=== PATIENT | male | born 1955 | race Caucasian/White ===

== ENCOUNTER 2017-05-19 16:51 | Outpatient (CLI) | payer OTHER ==
[~2017-05-19 16:51] MED LIST: HYDR20TA3 PO; LEVO150T8 PO; SIMV40TA4 PO; TEST75GE5 TOP
[2017-05-19 17:38] LABS: BASOPHILS % (AUTO) 0.9 % (0-1); EOSINOPHILS # (AUTO) 0.2 X10'3 (0-0.9); EOSINOPHILS % (AUTO) 4.8 % (0-6); HEMATOCRIT 39.1 % (42.0-52.0); HEMOGLOBIN 13.2 g/dl (14.0-17.9); LYMPHOCYTES # (AUTO) 2.2 X10'3 (1.1-4.8); LYMPHOCYTES % (AUTO) 43.5 % (21-51); MEAN CORPUSCULAR HEMOGLOBIN 31.7 PG (27.0-31.0); MEAN CORPUSCULAR HGB CONC 33.7 % (33.0-36.5); MONOCYTES # (AUTO) 0.4 X10'3 (0-0.9); MONOCYTES % (AUTO) 7.9 % (2-12); NEUTROPHILS # (AUTO) 2.1 X10'3 (1.8-7.7); NEUTROPHILS % (AUTO) 42.9 % (42-75); PLATELET COUNT 208 X10'3 (140-440); RED BLOOD COUNT 4.16 X10'6 (4.70-6.10); RED CELL DISTRIBUTION WIDTH 13.2 % (11.5-14.5); WHITE BLOOD COUNT 4.9 X10'3 (4.5-11.0)
[2017-05-19 17:40] LABS: ALANINE AMINOTRANSFERASE 55 U/L (12-78); ALBUMIN 4.1 G/DL (3.4-5.0); ALBUMIN/GLOBULIN RATIO 1.2 (1.1-1.5); ALKALINE PHOSPHATASE 64 IU/L (46-116); ANION GAP 8 (8-16); ASPARTATE AMINO TRANSFERASE 38 U/L (10-37); BILIRUBIN,TOTAL 0.7 MG/DL (0.1-1.0); BLOOD UREA NITROGEN 20 MG/DL (7-18); BUN/CREATININE RATIO 18.9 (5.4-32.0); CALCIUM 8.8 MG/DL (8.5-10.1); CHLORIDE 104 MMOL/L (99-107); CHOL/HDL RATIO 2.1 (0.00-4.99); CHOLESTEROL 181 MG/DL (0-200); CREATININE 1.06 MG/DL (0.60-1.10); GLUCOSE 105 MG/DL (70-104); HDL CHOLESTEROL 86 MG/DL (35-60); LDL CHOLESTEROL 80 MG/DL (50-100); POTASSIUM 3.8 MMOL/L (3.5-5.1); SODIUM 139 MMOL/L (135-145); TOTAL CARBON DIOXIDE 27.4 MMOL/L (24-32); TOTAL PROTEIN 7.4 G/DL (6.4-8.2); TRIGLYCERIDES 45 MG/DL (20-135); eGFR 71 ML/MIN
[2017-05-20 04:18] LABS: CLARITY,URINE CLEAR (Clear); COLOR,URINE YELLOW (Yellow); GLUCOSE, URINE NEGATIVE (Neg); KETONES,URINE NEGATIVE (Neg); LEUKOCYTE ESTERASE ,URINE NEGATIVE (Neg); NITRITES, URINE NEGATIVE (Neg); OCCULT BLOOD,URINE NEGATIVE (Neg); PROTEIN,URINE NEGATIVE (Neg); UROBILINOGEN,URINE 0.2 E.U/dL (0.2-1.0)
[2017-05-20 04:20] LABS: UA COLLECTION TYPE CLN CATCH MIDSTREAM
== END 2017-05-19 23:59 | disposition home or self-care (01) ==
LOC: LAB 16:51
PROVIDERS: ATTEND Family Medicine
DX: Z00.00 Encounter for general adult medical examination without abnormal findings (principal)
CPT/HCPCS: 36415; 80053; 80061; 81003; 84402; 84403; 84439; 84443; 85025

== ENCOUNTER 2017-11-17 06:52 | Outpatient (CLI) | payer OTHER ==
[2017-11-17 22:52] LABS: BASOPHILS % (AUTO) 0.6 % (0-1); EOSINOPHILS # (AUTO) 0.1 X10'3 (0-0.9); EOSINOPHILS % (AUTO) 1.8 % (0-6); HEMATOCRIT 36.4 % (42.0-52.0); HEMOGLOBIN 12.5 g/dl (14.0-17.9); LYMPHOCYTES # (AUTO) 1.6 X10'3 (1.1-4.8); LYMPHOCYTES % (AUTO) 32.2 % (21-51); MEAN CORPUSCULAR HEMOGLOBIN 31.9 PG (27.0-31.0); MEAN CORPUSCULAR HGB CONC 34.2 % (33.0-36.5); MEAN CORPUSCULAR VOLUME 93.3 FL (78-98); MEAN PLATELET VOLUME 10.2 FL (7.4-10.4); MONOCYTES # (AUTO) 0.3 X10'3 (0-0.9); MONOCYTES % (AUTO) 5.2 % (2-12); NEUTROPHILS % (AUTO) 60.2 % (42-75); PLATELET COUNT 195 X10'3 (140-440); RED CELL DISTRIBUTION WIDTH 14.4 % (11.5-14.5); WHITE BLOOD COUNT 4.9 X10'3 (4.5-11.0)
[2017-11-17 22:58] LABS: CLARITY,URINE CLEAR (Clear); COLOR,URINE YELLOW (Yellow); GLUCOSE, URINE NEGATIVE (Neg); KETONES,URINE NEGATIVE (Neg); LEUKOCYTE ESTERASE ,URINE NEGATIVE (Neg); NITRITES, URINE NEGATIVE (Neg); OCCULT BLOOD,URINE NEGATIVE (Neg); PROTEIN,URINE NEGATIVE (Neg); UROBILINOGEN,URINE 0.2 E.U/dL (0.2-1.0)
[2017-11-17 23:06] LABS: UA COLLECTION TYPE VOIDED
[2017-11-17 23:16] LABS: ALANINE AMINOTRANSFERASE 45 U/L (12-78); ALBUMIN/GLOBULIN RATIO 1.3 (1.1-1.5); ALKALINE PHOSPHATASE 58 IU/L (46-116); ANION GAP 9 (8-16); ASPARTATE AMINO TRANSFERASE 32 U/L (10-37); BILIRUBIN,TOTAL 0.5 MG/DL (0.1-1.0); BLOOD UREA NITROGEN 16 MG/DL (7-18); BUN/CREATININE RATIO 14.8 (5.4-32.0); CALCIUM 8.9 MG/DL (8.5-10.1); CHLORIDE 102 MMOL/L (99-107); CHOL/HDL RATIO 1.9 (0.00-4.99); CHOLESTEROL 173 MG/DL (0-200); CREATININE 1.08 MG/DL (0.60-1.10); GLUCOSE 103 MG/DL (70-104); HDL CHOLESTEROL 91 MG/DL (35-60); LDL CHOLESTEROL 73 MG/DL (50-100); SODIUM 137 MMOL/L (135-145); TOTAL CARBON DIOXIDE 26.3 MMOL/L (24-32); TOTAL PROTEIN 7.1 G/DL (6.4-8.2); TRIGLYCERIDES 27 MG/DL (20-135); eGFR 69 ML/MIN
== END 2017-11-17 23:59 | disposition home or self-care (01) ==
LOC: LAB 06:52
PROVIDERS: ATTEND Family Medicine
DX: Z00.01 Encounter for general adult medical examination with abnormal findings (principal); D64.9 Anemia, unspecified; E03.9 Hypothyroidism, unspecified; E78.5 Hyperlipidemia, unspecified; R53.83 Other fatigue; F10.10 Alcohol abuse, uncomplicated
CPT/HCPCS: 36415; 80053; 80061; 81003; 84402; 84403; 84439; 84443; 85025

== ENCOUNTER 2018-02-20 08:33 | Outpatient (CLI) | payer OTHER | END 2018-02-20 23:59 | disposition home or self-care (01) | LOC: RAD 08:33 | PROVIDERS: ATTEND Orthopaedic Surgery | DX: S83.411A Sprain of medial collateral ligament of right knee, initial encounter (principal); S83.511A Sprain of anterior cruciate ligament of right knee, initial encounter; M25.461 Effusion, right knee; M17.11 Unilateral primary osteoarthritis, right knee; X58.XXXA Exposure to other specified factors, initial encounter; Y93.89 Activity, other specified; Y92.89 Other specified places as the place of occurrence of the external cause; Y99.8 Other external cause status | CPT/HCPCS: 73721 ==

== ENCOUNTER 2018-11-26 10:03 | Outpatient (CLI) | payer OTHER ==
[~2018-11-26 10:03] MED LIST changes: +HYDR20TA23 PO; -HYDR20TA3 PO
[2018-11-26 11:03] LABS: CLARITY,URINE CLEAR (Clear); COLOR,URINE YELLOW (Yellow); GLUCOSE, URINE NEGATIVE (Neg); KETONES,URINE NEGATIVE (Neg); LEUKOCYTE ESTERASE ,URINE NEGATIVE (Neg); NITRITES, URINE NEGATIVE (Neg); OCCULT BLOOD,URINE NEGATIVE (Neg); PROTEIN,URINE NEGATIVE (Neg); UA COLLECTION TYPE CLN CATCH MIDSTREAM; UROBILINOGEN,URINE 0.2 E.U/dL (0.2-1.0)
[2018-11-26 11:08] LABS: EOSINOPHILS # (AUTO) 0.2 X10'3 (0-0.9); HEMOGLOBIN 12.4 g/dl (14.0-17.9); LYMPHOCYTES # (AUTO) 2.8 X10'3 (1.1-4.8); MONOCYTES # (AUTO) 0.4 X10'3 (0-0.9); RED CELL DISTRIBUTION WIDTH 13.7 % (11.5-14.5)
[2018-11-26 11:10] LABS: BASOPHILS % (AUTO) 0.9 % (0-1); EOSINOPHILS % (AUTO) 4.3 % (0-6); HEMATOCRIT 36.7 % (42.0-52.0); LYMPHOCYTES % (AUTO) 53.8 % (21-51); MEAN CORPUSCULAR HEMOGLOBIN 31.9 PG (27.0-31.0); MEAN CORPUSCULAR HGB CONC 33.8 g/dL (33.0-36.5); MEAN CORPUSCULAR VOLUME 94.3 FL (78-98); MEAN PLATELET VOLUME 9.9 FL (7.4-10.4); MONOCYTES % (AUTO) 7.4 % (2-12); NEUTROPHILS # (AUTO) 1.7 X10'3 (1.8-7.7); NEUTROPHILS % (AUTO) 33.6 % (42-75); PLATELET COUNT 201 X10'3 (140-440); RED BLOOD COUNT 3.89 X10'6 (4.70-6.10); WHITE BLOOD COUNT 5.1 X10'3 (4.5-11.0)
[2018-11-26 11:29] LABS: ALANINE AMINOTRANSFERASE 34 U/L (12-78); ALBUMIN 3.9 G/DL (3.4-5.0); ALBUMIN/GLOBULIN RATIO 1.2 (1.1-1.5); ALKALINE PHOSPHATASE 44 IU/L (46-116); ANION GAP 10 (8-16); ASPARTATE AMINO TRANSFERASE 31 U/L (10-37); BILIRUBIN,TOTAL 0.4 MG/DL (0.1-1.0); BLOOD UREA NITROGEN 17 MG/DL (7-18); BUN/CREATININE RATIO 15.9 (5.4-32.0); CALCIUM 8.7 MG/DL (8.5-10.1); CHLORIDE 106 MMOL/L (99-107); CHOL/HDL RATIO 2.5 (0.00-4.99); CHOLESTEROL 171 MG/DL (0-200); CREATININE 1.07 MG/DL (0.60-1.10); GLUCOSE 89 MG/DL (70-104); HDL CHOLESTEROL 68 MG/DL (35-60); LDL CHOLESTEROL 88 MG/DL (50-100); POTASSIUM 3.8 MMOL/L (3.5-5.1); SODIUM 144 MMOL/L (135-145); TOTAL CARBON DIOXIDE 27.9 MMOL/L (24-32); TOTAL PROTEIN 7.2 G/DL (6.4-8.2); TRIGLYCERIDES 50 MG/DL (20-135); eGFR 70 ML/MIN
== END 2018-11-26 23:59 | disposition home or self-care (01) ==
LOC: LAB 10:03
PROVIDERS: ATTEND Family Medicine
DX: Z00.00 Encounter for general adult medical examination without abnormal findings (principal); D64.9 Anemia, unspecified; E03.9 Hypothyroidism, unspecified; E29.1 Testicular hypofunction; R53.83 Other fatigue; Z86.018 Personal history of other benign neoplasm; Z72.89 Other problems related to lifestyle
CPT/HCPCS: 36415; 80053; 80061; 81003; 84402; 84403; 84439; 84443; 85025

== ENCOUNTER 2019-03-16 15:02 | Inpatient (IN) | payer OTHER ==
[~2019-03-16] VITALS: Ht 188 cm; Wt 91.9 kg
[~2019-03-16 15:02] MED LIST changes: +SIMV-45 PO; -SIMV40TA4 PO
[2019-03-16] MEDS ORDERED: normal saline 1000ML IV soln IVB ONE ×2 (15:15→16:45)
[2019-03-16] MEDS ORDERED: acetaminophen 325mg/10.15ml oral unit dose solution PO ONE (15:25)
[2019-03-16] MEDS ORDERED: acetaminophen 325mg tablet PO ONE (15:25)
[2019-03-16 15:39] LABS: BASOPHILS % (AUTO) 0.6 % (0-1); EOSINOPHILS # (AUTO) 0.1 X10'3 (0-0.9); EOSINOPHILS % (AUTO) 2.1 % (0-6); HEMOGLOBIN 13.7 g/dl (14.0-17.9); LYMPHOCYTES # (AUTO) 1.5 X10'3 (1.1-4.8); LYMPHOCYTES % (AUTO) 35.8 % (21-51); MEAN CORPUSCULAR HEMOGLOBIN 31.7 PG (27.0-31.0); MEAN CORPUSCULAR VOLUME 90.6 FL (78-98); MEAN PLATELET VOLUME 9.8 FL (7.4-10.4); MONOCYTES # (AUTO) 0.8 X10'3 (0-0.9); MONOCYTES % (AUTO) 20.3 % (2-12); NEUTROPHILS # (AUTO) 1.7 X10'3 (1.8-7.7); NEUTROPHILS % (AUTO) 41.2 % (42-75); PLATELET COUNT 198 X10'3 (140-440); RED BLOOD COUNT 4.31 X10'6 (4.70-6.10); RED CELL DISTRIBUTION WIDTH 13.5 % (11.5-14.5); WHITE BLOOD COUNT 4.1 X10'3 (4.5-11.0)
[2019-03-16 15:46] LABS: PARTIAL THROMBOPLASTIN TIME 33 SECONDS (22-32)
[2019-03-16 15:47] LABS: ALANINE AMINOTRANSFERASE 50 U/L (12-78); ALBUMIN/GLOBULIN RATIO 1.2 (1.1-1.5); ALKALINE PHOSPHATASE 71 IU/L (46-116); ANION GAP 10 (8-16); ASPARTATE AMINO TRANSFERASE 66 U/L (10-37); BILIRUBIN,TOTAL 0.7 MG/DL (0.1-1.0); BLOOD UREA NITROGEN 16 MG/DL (7-18); BUN/CREATININE RATIO 11.1 (5.4-32.0); CALCIUM 8.8 MG/DL (8.5-10.1); CHLORIDE 96 MMOL/L (99-107); CREATININE 1.44 MG/DL (0.60-1.10); GLUCOSE 81 MG/DL (70-104); POTASSIUM 3.9 MMOL/L (3.5-5.1); SODIUM 131 MMOL/L (135-145); TOTAL PROTEIN 7.4 G/DL (6.4-8.2); eGFR 49 ML/MIN
[2019-03-16 15:49] LABS: TROPONIN I < 0.04 NG/ML (0.0-0.05)
[2019-03-16] MEDS ORDERED: dexamethasone sod phosphate 10mg/ml inj IV STA (16:41)
--- NOTE | 2019-03-16 16:45 | NUR ---
PT. CURRENTLY IN [place] POSITION, BP: 94/51. 3 L BOLUS GOING IN, HR: 73. DENIES DIZZINESS, SOB OR CP
--- NOTE | 2019-03-16 16:45 | NUR ---
MD AWARE OF BP OF 92/38, TEMP: 101.9
[2019-03-16 16:47] LABS: CLARITY,URINE CLEAR (Clear); COLOR,URINE YELLOW (Yellow); GLUCOSE, URINE NEGATIVE (Neg); KETONES,URINE 15 mg/dl (Neg); LEUKOCYTE ESTERASE ,URINE NEGATIVE (Neg); NITRITES, URINE NEGATIVE (Neg); OCCULT BLOOD,URINE SMALL (Neg); PH,URINE 5.5 (4.8-8.0); PROTEIN,URINE NEGATIVE (Neg); UROBILINOGEN,URINE 0.2 E.U/dL (0.2-1.0)
[2019-03-16 16:58] LABS: UA COLLECTION TYPE STRAIGHT CATH
[2019-03-16 17:00] LABS: BACTERIA,URINE NONE SEEN /HPF (Neg); MUCUS STRANDS FEW /LPF (Neg); RBC,URINE 0-2 /HPF (0-2); SQUAMOUS EPITHELIAL CELL,UR FEW /LPF (FEW); TRANSITIONAL EPI CELLS,URINE MODERATE /HPF; WBC,URINE 0-4 /HPF (0-4)
[2019-03-16 17:04] LABS: TOTAL CELLS COUNTED 100
[2019-03-16 17:05] LABS: PLATELET ESTIMATE NORMAL
[2019-03-16] MEDS ORDERED: ROSU20TA31 PO (17:40)
[2019-03-16] MEDS ORDERED: LEVO100T PO (17:40)
[2019-03-16] MEDS ORDERED: diphenhydrAMINE 50 mg/ml inj IV PRN (17:55)
[2019-03-16] MEDS ORDERED: mag hydrox/Alum hydrox/simeth 30ml oral suspension PO PRN (17:55)
[2019-03-16] MEDS ORDERED: methylPREDNISolone sod succ 125mg/2ml vial IV ONE (17:55)
[2019-03-16] MEDS ORDERED: HYDROcodone/acetaminophen 5mg/325mg tablet PO PRN (17:55)
[2019-03-16] MEDS ORDERED: morphine 2 MG/ML inj. syringe IV PRN ×2 (17:55)
[2019-03-16] MEDS ORDERED: magnesium hydroxide 30ml (MOM) UD suspension PO PRN (17:55)
[2019-03-16] MEDS ORDERED: potassium CL 10mEq/100ml bag 100 ML IV PRN ×2 (17:55)
[2019-03-16] MEDS ORDERED: acetaminophen 650mg rectal suppository RC PRN (17:55)
[2019-03-16] MEDS ORDERED: ondansetron/PF 4mg/2ml inj IV PRN (17:55)
[2019-03-16] MEDS ORDERED: potassium Cl 20 mEq SR tablet PO PRN (17:55)
[2019-03-16] MEDS ORDERED: magnesium 4gm in 100ml NS 100 ML IV PRN (17:55)
[2019-03-16] MEDS ORDERED: magnesium 2GM in 50ml NS 50 ML IV PRN (17:55)
[2019-03-16] MEDS ORDERED: bisacodyl 10mg suppository rectal RC PRN (17:55)
[2019-03-16] MEDS ORDERED: magnesium Cl slow-release 64mg tablet PO PRN (17:55)
[2019-03-16] MEDS ORDERED: diphenhydrAMINE 25mg capsule PO PRN (17:55)
[2019-03-16] MEDS ORDERED: HYDROcodone/acetaminophen 10/325mg tab PO PRN (17:55)
[2019-03-16] MEDS ORDERED: acetaminophen 325mg tablet PO PRN ×2 (17:55)
[2019-03-16] MEDS ORDERED: aspirin 325mg tablet PO ONE (18:05)
[2019-03-16] MEDS ORDERED: hydrocortisone sod succ/PF 100mg/2ml inj. IV SCH (18:05)
[2019-03-16] MEDS: levoFLOXACIN-Levaquin 750MG/D5 150 ML IV SCH (18:32)
[2019-03-16] MEDS: normal saline 1000ml 1,000 ML IV SCH (18:32)
[2019-03-16 18:39] LABS: CHOLESTEROL 195 MG/DL (0-200)
[2019-03-16 18:40] LABS: CHOL/HDL RATIO 2.8 (0.00-4.99); HDL CHOLESTEROL 69 MG/DL (35-60); HEMOGLOBIN A1C 5.6 % (4.5-6.2); LDL CHOLESTEROL 113 MG/DL (50-100); TRIGLYCERIDES 60 MG/DL (20-135)
--- NOTE | 2019-03-16 19:05 | NUR ---
Patient in room ED 5. I have received report from Riky PAIGE and had the opportunity to ask questions and assume patient care.
[2019-03-16 19:20] VITALS: BP 92/54
--- NOTE | 2019-03-16 19:20 | NUR ---
Patient arrived to the floor at 1920 via gurney with family from the ED. Vital signs stable. Tele place on pt. MRSA swab collected. Pt darted. 2 RN skin check complete. No distress noted. Pt fatigued at this time.
[2019-03-16] MEDS: K and/or MAG REPLACEMENT MC SCH (20:00)
[2019-03-16] MEDS ORDERED: methylPREDNISolone sod succ/PF 40mg inj. IV SCH (20:00)
[2019-03-16] MEDS: heparin, porcine 5000 units/ml vial SQ SCH (20:18)
[2019-03-16 22:00] VITALS: BP 92/49
[2019-03-16 23:57] LABS: ETHANOL < 0.010 GM/DL (0.0-0.010)
[2019-03-17] VITALS (7 sets, daily range): BP systolic 92–129; BP diastolic 48–75
[2019-03-17] MEDS: hydrocortisone sod succ/PF 100mg/2ml inj. IV SCH ×4 (00:15→17:46)
[2019-03-17 00:43] LABS: URINE AMPHETAMINE SCREEN NEGATIVE (Neg); URINE BARBITUATE SCREEN NEGATIVE (Neg); URINE BENZODIAZEPINES SCREEN NEGATIVE (Neg); URINE CANNABINOID SCREEN NEGATIVE (Neg); URINE COCAINE SCREEN NEGATIVE (Neg); URINE METHADONE SCREEN NEGATIVE (Neg); URINE OPIATE SCREEN NEGATIVE (Neg); URINE PHENCYCLIDINE SCREEN NEGATIVE (Neg)
[2019-03-17] MEDS: normal saline 1000ml 1,000 ML IV SCH ×4 (01:55→19:51)
--- NOTE | 2019-03-17 06:13 | NUR ---
Problems reprioritized. Patient report given, questions answered & plan of care reviewed with Ana Lilia RN.
--- NOTE | 2019-03-17 06:15 | NUR ---
Patient in room PCU 3019. I have received report from GRECIA Mays and had the opportunity to ask questions and assume patient care.
[2019-03-17 06:52] LABS: BASOPHILS % (AUTO) 0.4 % (0-1); EOSINOPHILS % (AUTO) 0.1 % (0-6); HEMATOCRIT 39.3 % (42.0-52.0); HEMOGLOBIN 13.6 g/dl (14.0-17.9); LYMPHOCYTES # (AUTO) 0.8 X10'3 (1.1-4.8); LYMPHOCYTES % (AUTO) 22.9 % (21-51); MEAN CORPUSCULAR HEMOGLOBIN 31.9 PG (27.0-31.0); MEAN CORPUSCULAR HGB CONC 34.5 g/dL (33.0-36.5); MEAN CORPUSCULAR VOLUME 92.7 FL (78-98); MEAN PLATELET VOLUME 10.1 FL (7.4-10.4); MONOCYTES # (AUTO) 0.1 X10'3 (0-0.9); MONOCYTES % (AUTO) 4.5 % (2-12); NEUTROPHILS # (AUTO) 2.4 X10'3 (1.8-7.7); NEUTROPHILS % (AUTO) 72.1 % (42-75); PLATELET COUNT 186 X10'3 (140-440); RED BLOOD COUNT 4.24 X10'6 (4.70-6.10); RED CELL DISTRIBUTION WIDTH 13.3 % (11.5-14.5); WHITE BLOOD COUNT 3.3 X10'3 (4.5-11.0)
[2019-03-17 07:13] LABS: ALANINE AMINOTRANSFERASE 49 U/L (12-78); ALBUMIN 3.5 G/DL (3.4-5.0); ALKALINE PHOSPHATASE 64 IU/L (46-116); ANION GAP 10 (8-16); ASPARTATE AMINO TRANSFERASE 57 U/L (10-37); BILIRUBIN,TOTAL 0.4 MG/DL (0.1-1.0); BLOOD UREA NITROGEN 15 MG/DL (7-18); BUN/CREATININE RATIO 13.9 (5.4-32.0); CALCIUM 8.2 MG/DL (8.5-10.1); CHLORIDE 104 MMOL/L (99-107); CHOL/HDL RATIO 2.8 (0.00-4.99); CHOLESTEROL 195 MG/DL (0-200); CREATININE 1.08 MG/DL (0.60-1.10); GLUCOSE 172 MG/DL (70-104); HDL CHOLESTEROL 70 MG/DL (35-60); LDL CHOLESTEROL 117 MG/DL (50-100); PHOSPHORUS 3.6 MG/DL (2.3-4.5); POTASSIUM 3.8 MMOL/L (3.5-5.1); SODIUM 136 MMOL/L (135-145); TOTAL CARBON DIOXIDE 22.4 MMOL/L (24-32); TOTAL PROTEIN 6.9 G/DL (6.4-8.2); TRIGLYCERIDES 34 MG/DL (20-135); eGFR 69 ML/MIN
[2019-03-17] MEDS ORDERED: atorvastatin 10mg tablet PO SCH (08:00)
[2019-03-17] MEDS: K and/or MAG REPLACEMENT MC SCH ×2 (08:00→20:00)
[2019-03-17] MEDS: atorvastatin 20mg tablet PO SCH (08:12)
[2019-03-17] MEDS: levoTHYROXINE 100mcg tablet PO SCH (08:12)
[2019-03-17] MEDS: heparin, porcine 5000 units/ml vial SQ SCH ×2 (08:12→19:57)
[2019-03-17] MEDS: aspirin 81mg tablet.DR PO SCH (08:13)
[2019-03-17] MEDS: levoFLOXACIN-Levaquin 750MG/D5 150 ML IV SCH (08:15)
--- NOTE | 2019-03-17 11:00 | NUR ---
pt does not need to retrieve his testosterone per Dr Shields.
--- NOTE | 2019-03-17 13:00 | NUR ---
Sent to Dr Shields PAGER ID: [phone] MESSAGE: RE: Thomas Ochoa [id number]. Can we complete the neuro checks? pt is appropriate. -Ana Lilia [phone]
--- NOTE | 2019-03-17 18:28 | NUR ---
Patient in room PCU 3018. I have received report from Ana Lilia PAIGE and had the opportunity to ask questions and assume patient care.
--- NOTE | 2019-03-17 18:31 | NUR ---
Problems reprioritized. Patient report given, questions answered & plan of care reviewed with GRECIA Archer.
[2019-03-18] MEDS: hydrocortisone sod succ/PF 100mg/2ml inj. IV SCH ×3 (00:02→12:00)
--- NOTE | 2019-03-18 01:21 | NUR ---
Problems reprioritized. Patient report given, questions answered & plan of care reviewed with Milly PAIGE.
--- NOTE | 2019-03-18 01:26 | NUR ---
Patient in room U 3019. I have received report from GRECIA Sutherland and had the opportunity to ask questions and assume patient care. Addendum: 03/18/19 at 0126 by Milly Trejo RN Amended: Links added.
[2019-03-18 02:00] VITALS: BP 120/69
[2019-03-18] MEDS: normal saline 1000ml 1,000 ML IV SCH (03:23)
--- NOTE | 2019-03-18 06:10 | NUR ---
Patient in room PCU 3019. I have received report from Stephie PAIGE and had the opportunity to ask questions and assume patient care.
[2019-03-18 06:13] LABS: BASOPHILS % (AUTO) 0.1 % (0-1); EOSINOPHILS % (AUTO) 0 % (0-6); HEMATOCRIT 29.3 % (42.0-52.0); HEMOGLOBIN 10.4 g/dl (14.0-17.9); LYMPHOCYTES # (AUTO) 0.8 X10'3 (1.1-4.8); LYMPHOCYTES % (AUTO) 7.6 % (21-51); MEAN CORPUSCULAR HEMOGLOBIN 32.6 PG (27.0-31.0); MEAN CORPUSCULAR HGB CONC 35.6 g/dL (33.0-36.5); MEAN CORPUSCULAR VOLUME 91.4 FL (78-98); MEAN PLATELET VOLUME 10.4 FL (7.4-10.4); MONOCYTES # (AUTO) 0.7 X10'3 (0-0.9); MONOCYTES % (AUTO) 6.9 % (2-12); NEUTROPHILS # (AUTO) 9.1 X10'3 (1.8-7.7); NEUTROPHILS % (AUTO) 85.4 % (42-75); PLATELET COUNT 152 X10'3 (140-440); RED CELL DISTRIBUTION WIDTH 13.4 % (11.5-14.5); WHITE BLOOD COUNT 10.6 X10'3 (4.5-11.0)
--- NOTE | 2019-03-18 06:14 | NUR ---
Problems reprioritized. Patient report given, questions answered & plan of care reviewed with GRECIA Packer.
[2019-03-18 06:30] VITALS: BP 109/59
[2019-03-18 06:40] LABS: ALANINE AMINOTRANSFERASE 38 U/L (12-78); ALBUMIN 3.1 G/DL (3.4-5.0); ALBUMIN/GLOBULIN RATIO 1.2 (1.1-1.5); ALKALINE PHOSPHATASE 47 IU/L (46-116); ANION GAP 7 (8-16); ASPARTATE AMINO TRANSFERASE 54 U/L (10-37); BILIRUBIN,TOTAL 0.4 MG/DL (0.1-1.0); BLOOD UREA NITROGEN 16 MG/DL (7-18); CALCIUM 7.7 MG/DL (8.5-10.1); CHLORIDE 110 MMOL/L (99-107); CREATININE 0.89 MG/DL (0.60-1.10); GLUCOSE 148 MG/DL (70-104); MAGNESIUM 1.9 MG/DL (1.5-2.4); PHOSPHORUS 2.3 MG/DL (2.3-4.5); POTASSIUM 3.2 MMOL/L (3.5-5.1); SODIUM 140 MMOL/L (135-145); TOTAL CARBON DIOXIDE 22.7 MMOL/L (24-32); TOTAL PROTEIN 5.7 G/DL (6.4-8.2); eGFR 86 ML/MIN
[2019-03-18] MEDS: atorvastatin 20mg tablet PO SCH (07:58)
[2019-03-18] MEDS: levoTHYROXINE 100mcg tablet PO SCH (07:58)
[2019-03-18] MEDS: heparin, porcine 5000 units/ml vial SQ SCH (07:59)
[2019-03-18] MEDS: aspirin 81mg tablet.DR PO SCH (07:59)
[2019-03-18] MEDS: K and/or MAG REPLACEMENT MC SCH (08:03)
[2019-03-18] MEDS: potassium Cl 20 mEq SR tablet PO PRN ×2 (08:10→12:04)
[2019-03-18] MEDS ORDERED: ASPI-1071 PO (10:26)
[2019-03-18] MEDS ORDERED: LEVO500T89 PO (10:28)
[2019-03-18 11:00] VITALS: BP 123/70
[2019-03-18] MEDS ORDERED: levoFLOXACIN 750MG TABLET PO SCH (11:00)
[2019-03-18 11:48] VITALS: BP_SYST 119; BP_SYST 124; BP_DIAS 76
--- NOTE | 2019-03-18 12:10 | NUR ---
Patient discharged at this time, discussed discharge instructions, verbalized understanding, patient will call to f/u with PCP. Belongings sent with patient, states he'll take his steroid medication at home. Escorted out via ambulation per this nurse, tolerated well without event. IV removed with cathlon intact, tele dc'd. Eager to go home.
== END 2019-03-18 12:10 | disposition home or self-care (01) | DRG 644 ==
LOC: ER 15:03 → ED HOLD 18:02 → CMPBEDREQ 19:42 → PCU 3S 19:43
PROVIDERS: ADMIT Family Medicine; ATTEND Family Medicine
DX: E27.2 Addisonian crisis (principal); E87.1 Hypo-osmolality and hyponatremia; G45.9 Transient cerebral ischemic attack, unspecified; N17.9 Acute kidney failure, unspecified; J40 Bronchitis, not specified as acute or chronic; D64.9 Anemia, unspecified; E03.9 Hypothyroidism, unspecified; E16.2 Hypoglycemia, unspecified; E78.5 Hyperlipidemia, unspecified; E86.0 Dehydration; N18.9 Chronic kidney disease, unspecified; Z91.19 Patient's noncompliance with other medical treatment and regimen
CPT/HCPCS: 36415; 70450; 70544; 70551; 71045; 80053; 80061; 80305; 80320; 81001; 82948; 83036; 83605; 83735; 84100; 84145; 84443; 84484; 85025; 85610; 85651; 85730; 86885; 86900; 86901; 87040; 87081; 87502; 87503; 92508; 92616; 93005; 93306; 93880; 96361; 96374; 99291; G0378; J1100; J1644; J1720; J1956; J7030

== ENCOUNTER 2019-05-14 09:20 | Emergency (ER) | payer OTHER ==
[~2019-05-14] VITALS: Ht 170.2 cm; Wt 86.0 kg
[~2019-05-14 09:20] MED LIST changes: +ASPI-1071 PO; +LEVO100T PO; -LEVO150T8 PO; +ROSU20TA31 PO; -SIMV-45 PO
[2019-05-14 10:40] VITALS: BP 105/73
[2019-05-14] MEDS ORDERED: DOXY150T9 PO (10:52)
== END 2019-05-14 11:07 | disposition home or self-care (01) ==
LOC: ER 09:21
DX: R05 Cough (principal); R91.8 Other nonspecific abnormal finding of lung field; Z79.82 Long term (current) use of aspirin
CPT/HCPCS: 71046; 99283

== ENCOUNTER 2019-06-10 12:15 | Outpatient (CLI) | payer OTHER | END 2019-06-10 23:59 | disposition home or self-care (01) | LOC: RAD 12:15 | PROVIDERS: ATTEND Family Medicine | DX: J98.8 Other specified respiratory disorders (principal); J18.9 Pneumonia, unspecified organism | CPT/HCPCS: 71046 ==

== ENCOUNTER → 2019-10-29 | Outpatient (CLI) | payer BC ==
[~2019-10-29] MED LIST changes: +HYDR20TA2 PO; -HYDR20TA23 PO
== END | disposition home or self-care (01) ==
LOC: RAD 11:11
PROVIDERS: ATTEND Orthopaedic Surgery
DX: S83.241A Other tear of medial meniscus, current injury, right knee, initial encounter (principal); M25.761 Osteophyte, right knee; M25.461 Effusion, right knee; M17.11 Unilateral primary osteoarthritis, right knee; X58.XXXA Exposure to other specified factors, initial encounter; Y93.89 Activity, other specified; Y92.89 Other specified places as the place of occurrence of the external cause; Y99.8 Other external cause status
CPT/HCPCS: 73721

== ENCOUNTER 2019-12-02 07:29 | Outpatient (CLI) | payer BC ==
[2019-12-02 08:35] LABS: BASOPHILS # (AUTO) 0.1 X10'3 (0-0.2); BASOPHILS % (AUTO) 0.9 % (0-1); EOSINOPHILS # (AUTO) 0.2 X10'3 (0-0.9); EOSINOPHILS % (AUTO) 2.5 % (0-6); HEMATOCRIT 38.4 % (42.0-52.0); LYMPHOCYTES # (AUTO) 1.6 X10'3 (1.1-4.8); LYMPHOCYTES % (AUTO) 25.6 % (21-51); MEAN CORPUSCULAR HEMOGLOBIN 31.5 PG (27.0-31.0); MEAN CORPUSCULAR HGB CONC 33.7 g/dL (33.0-36.5); MEAN CORPUSCULAR VOLUME 93.4 FL (78-98); MEAN PLATELET VOLUME 10.1 FL (7.4-10.4); MONOCYTES # (AUTO) 0.6 X10'3 (0-0.9); MONOCYTES % (AUTO) 9.1 % (2-12); NEUTROPHILS # (AUTO) 3.9 X10'3 (1.8-7.7); NEUTROPHILS % (AUTO) 61.9 % (42-75); PLATELET COUNT 227 X10'3 (140-440); RED BLOOD COUNT 4.12 X10'6 (4.70-6.10); WHITE BLOOD COUNT 6.3 X10'3 (4.5-11.0)
[2019-12-02 08:35] LABS: CLARITY,URINE CLEAR (Clear); COLOR,URINE YELLOW (Yellow); GLUCOSE, URINE NEGATIVE (Neg); KETONES,URINE NEGATIVE (Neg); NITRITES, URINE NEGATIVE (Neg); OCCULT BLOOD,URINE TRACE-INTACT (Neg); PROTEIN,URINE NEGATIVE (Neg); UROBILINOGEN,URINE 0.2 E.U/dL (0.2-1.0)
[2019-12-02 08:36] LABS: LEUKOCYTE ESTERASE ,URINE NEGATIVE (Neg)
[2019-12-02 08:46] LABS: UA COLLECTION TYPE CLN CATCH MIDSTREAM
[2019-12-02 08:47] LABS: BACTERIA,URINE NONE SEEN /HPF (Neg); RBC,URINE NONE SEEN /HPF (0-2); SQUAMOUS EPITHELIAL CELL,UR NONE SEEN /LPF (FEW); WBC,URINE NONE SEEN /HPF (0-4)
[2019-12-02 09:12] LABS: ALANINE AMINOTRANSFERASE 39 U/L (12-78); ALBUMIN 3.7 G/DL (3.4-5.0); ALBUMIN/GLOBULIN RATIO 1.1 (1.1-1.5); ALKALINE PHOSPHATASE 62 IU/L (46-116); ANION GAP 7 (8-16); ASPARTATE AMINO TRANSFERASE 36 U/L (10-37); BILIRUBIN,TOTAL 0.5 MG/DL (0.1-1.0); BLOOD UREA NITROGEN 15 MG/DL (7-18); BUN/CREATININE RATIO 16.9 (5.4-32.0); CALCIUM 8.9 MG/DL (8.5-10.1); CHLORIDE 104 MMOL/L (99-107); CREATININE 0.89 MG/DL (0.60-1.10); GLUCOSE 113 MG/DL (70-104); SODIUM 139 MMOL/L (135-145); TOTAL CARBON DIOXIDE 28.2 MMOL/L (24-32); TOTAL PROTEIN 7.1 G/DL (6.4-8.2); eGFR 86 ML/MIN
== END 2019-12-02 23:59 | disposition home or self-care (01) ==
LOC: LAB 07:29
PROVIDERS: ATTEND Family Medicine
DX: Z00.00 Encounter for general adult medical examination without abnormal findings (principal)
CPT/HCPCS: 36415; 80053; 81001; 84439; 84443; 85025

== ENCOUNTER 2021-08-15 07:42 | Day surgery (SDC) | payer BC ==
[~2021-08-15] VITALS: Ht 170.2 cm; Wt 84.1 kg
[~2021-08-15 07:42] MED LIST changes: -HYDR20TA2 PO; +HYDR20TA24 PO
[2021-08-15 07:50] VITALS: BP 120/80
[2021-08-15] MEDS ORDERED: fentaNYL/PF 50MCG/1 ML 2ML syringe ONE (07:50)
[2021-08-15] MEDS ORDERED: MIDAZolam 1 MG/ML 5ML VIAL ONE (07:51)
[2021-08-15 09:33] VITALS: BP 127/82
[2021-08-15 09:43] VITALS: BP 108/70
[2021-08-15 09:53] VITALS: BP 111/70
[2021-08-15 10:03] VITALS: BP 115/63
== END 2021-08-15 10:10 | disposition home or self-care (01) ==
LOC: GI LAB 07:42
PROVIDERS: ATTEND Internal Medicine Gastroenterology
DX: Z12.11 Encounter for screening for malignant neoplasm of colon (principal); D12.0 Benign neoplasm of cecum; Z86.010 Personal history of colon polyps
CPT/HCPCS: 45380; 99152; J2250; J3010; J7030; Z7512; A4620

== ENCOUNTER → 2021-12-14 | Outpatient (CLI) | payer BC ==
[2021-12-14 11:17] LABS: CLARITY,URINE CLEAR (Clear); COLOR,URINE YELLOW (Yellow); GLUCOSE, URINE NEGATIVE (Neg); KETONES,URINE NEGATIVE (Neg); LEUKOCYTE ESTERASE ,URINE NEGATIVE (Neg); NITRITES, URINE NEGATIVE (Neg); OCCULT BLOOD,URINE TRACE-INTACT (Neg); PROTEIN,URINE NEGATIVE (Neg); UROBILINOGEN,URINE 0.2 E.U/dL (0.2-1.0)
[2021-12-14 11:18] LABS: EOSINOPHILS # (AUTO) 0.2 X10'3 (0-0.9); RED CELL DISTRIBUTION WIDTH 13.9 % (11.5-14.5)
[2021-12-14 11:20] LABS: BASOPHILS # (AUTO) 0.1 X10'3 (0-0.2); BASOPHILS % (AUTO) 0.8 % (0-1); EOSINOPHILS % (AUTO) 2.6 % (0-6); HEMATOCRIT 37.3 % (42.0-52.0); HEMOGLOBIN 12.6 g/dl (14.0-17.9); LYMPHOCYTES % (AUTO) 15.1 % (21-51); MEAN CORPUSCULAR HEMOGLOBIN 31.2 PG (27.0-31.0); MEAN CORPUSCULAR HGB CONC 33.8 g/dL (33.0-36.5); MEAN CORPUSCULAR VOLUME 92.5 FL (78-98); MEAN PLATELET VOLUME 10.7 FL (7.4-10.4); MONOCYTES # (AUTO) 0.5 X10'3 (0-0.9); MONOCYTES % (AUTO) 6.9 % (2-12); NEUTROPHILS # (AUTO) 5.1 X10'3 (1.8-7.7); NEUTROPHILS % (AUTO) 74.6 % (42-75); PLATELET COUNT 192 X10'3 (140-440); RED BLOOD COUNT 4.03 X10'6 (4.70-6.10); WHITE BLOOD COUNT 6.8 X10'3 (4.5-11.0)
[2021-12-14 11:27] LABS: UA COLLECTION TYPE CLN CATCH MIDSTREAM
[2021-12-14 11:28] LABS: BACTERIA,URINE NONE SEEN /HPF (Neg); MUCUS STRANDS NONE SEEN /LPF (Neg); RBC,URINE 0-2 /HPF (0-2); SQUAMOUS EPITHELIAL CELL,UR NONE SEEN /LPF (FEW); WBC,URINE NONE SEEN /HPF (0-4)
[2021-12-14 11:32] LABS: ALANINE AMINOTRANSFERASE 35 U/L (12-78); ALBUMIN 3.7 G/DL (3.4-5.0); ALBUMIN/GLOBULIN RATIO 1.2 (1.1-1.5); ALKALINE PHOSPHATASE 54 IU/L (46-116); ANION GAP 6 (8-16); ASPARTATE AMINO TRANSFERASE 33 U/L (10-37); BILIRUBIN,TOTAL 0.6 MG/DL (0.1-1.0); BLOOD UREA NITROGEN 14 MG/DL (7-18); BUN/CREATININE RATIO 16.5 (5.4-32.0); CALCIUM 8.6 MG/DL (8.5-10.1); CHLORIDE 102 MMOL/L (99-107); CHOL/HDL RATIO 2.5 (0.00-4.99); CHOLESTEROL 157 MG/DL (0-200); CREATININE 0.85 MG/DL (0.60-1.10); GLUCOSE 86 MG/DL (70-104); HDL CHOLESTEROL 63 MG/DL (35-60); LDL CHOLESTEROL 74 MG/DL (50-100); MAGNESIUM 2.1 MG/DL (1.5-2.4); SODIUM 138 MMOL/L (135-145); TOTAL CARBON DIOXIDE 29.9 MMOL/L (24-32); TOTAL PROTEIN 6.9 G/DL (6.4-8.2); TRIGLYCERIDES 45 MG/DL (20-135); eGFR 90 ML/MIN
== END | disposition home or self-care (01) ==
LOC: LAB 10:16
PROVIDERS: ATTEND Family Medicine
DX: Z00.01 Encounter for general adult medical examination with abnormal findings (principal)
CPT/HCPCS: 36415; 80053; 80061; 81001; 83735; 84439; 84443; 85025

== ENCOUNTER 2023-02-06 11:08 | Outpatient (CLI) | payer BC ==
[~2023-02-06 11:08] MED LIST changes: -ROSU20TA31 PO; +ROSU20TA73 PO
[2023-02-06 11:51] LABS: BASOPHILS # (AUTO) 0.1 X10'3 (0-0.2); BASOPHILS % (AUTO) 0.9 % (0-1); EOSINOPHILS # (AUTO) 0.1 X10'3 (0-0.9); EOSINOPHILS % (AUTO) 1.8 % (0-6); HEMATOCRIT 36.3 % (42.0-52.0); LYMPHOCYTES # (AUTO) 0.8 X10'3 (1.1-4.8); LYMPHOCYTES % (AUTO) 14.4 % (21-51); MEAN CORPUSCULAR HEMOGLOBIN 31.4 PG (27.0-31.0); MEAN CORPUSCULAR VOLUME 95.2 FL (78-98); MEAN PLATELET VOLUME 10.8 FL (7.4-10.4); MONOCYTES # (AUTO) 0.3 X10'3 (0-0.9); MONOCYTES % (AUTO) 6.3 % (2-12); NEUTROPHILS # (AUTO) 4.2 X10'3 (1.8-7.7); NEUTROPHILS % (AUTO) 76.6 % (42-75); PLATELET COUNT 182 X10'3 (140-440); RED BLOOD COUNT 3.82 X10'6 (4.70-6.10); WHITE BLOOD COUNT 5.5 X10'3 (4.5-11.0)
[2023-02-06 11:55] LABS: BILIRUBIN,URINE NEGATIVE (Neg); CLARITY,URINE CLEAR (Clear); COLOR,URINE YELLOW (Yellow); GLUCOSE, URINE NEGATIVE (Neg); KETONES,URINE NEGATIVE (Neg); LEUKOCYTE ESTERASE ,URINE NEGATIVE (Neg); NITRITES, URINE NEGATIVE (Neg); OCCULT BLOOD,URINE NEGATIVE (Neg); PH,URINE 5.5 (4.8-8.0); PROTEIN,URINE NEGATIVE (Neg); UROBILINOGEN,URINE 0.2 E.U/dL (0.2-1.0)
[2023-02-06 12:01] LABS: UA COLLECTION TYPE CLN CATCH MIDSTREAM
[2023-02-06 12:08] LABS: ALANINE AMINOTRANSFERASE 38 U/L (12-78); ALBUMIN 3.8 G/DL (3.4-5.0); ALBUMIN/GLOBULIN RATIO 1.3 (1.1-1.5); ALKALINE PHOSPHATASE 80 IU/L (46-116); ANION GAP 7 (8-16); ASPARTATE AMINO TRANSFERASE 35 U/L (10-37); BILIRUBIN,TOTAL 0.6 MG/DL (0.1-1.0); BLOOD UREA NITROGEN 14 MG/DL (7-18); BUN/CREATININE RATIO 15.4 (10.0-20.0); CALCIUM 8.4 MG/DL (8.5-10.1); CHLORIDE 105 MMOL/L (99-107); CHOL/HDL RATIO 1.8 (0.00-4.99); CHOLESTEROL 159 MG/DL (0-200); CREATININE 0.91 MG/DL (0.60-1.10); GLUCOSE 110 MG/DL (70-104); HDL CHOLESTEROL 86 MG/DL (35-60); LDL CHOLESTEROL 56 MG/DL (50-100); POTASSIUM 3.7 MMOL/L (3.5-5.1); SODIUM 141 MMOL/L (135-145); TOTAL CARBON DIOXIDE 28.7 MMOL/L (24-32); TOTAL PROTEIN 6.7 G/DL (6.4-8.2); TRIGLYCERIDES 43 MG/DL (20-135); eGFR 83 ML/MIN
[2023-02-06 12:10] LABS: LARGE PLATELETS FEW; PLATELET ESTIMATE NORMAL
[2023-02-07 12:52] LABS: TESTOSTERONE, SERUM 491 ng/dL (264-916); THIIODOTHRONINE, FREE, SERUM 2.8 pg/mL (2.0-4.4); THYROXINE (T4) 8.8 ug/dL (4.5-12.0); TRIIODOTHYRONINE (T3) 86 ng/dL (71-180)
== END 2023-02-06 23:59 | disposition home or self-care (01) ==
LOC: LAB 11:08
PROVIDERS: ATTEND Family Medicine
DX: D35.2 Benign neoplasm of pituitary gland (principal); E03.9 Hypothyroidism, unspecified; E78.5 Hyperlipidemia, unspecified
CPT/HCPCS: 36415; 80053; 80061; 81003; 84402; 84403; 84436; 84480; 84481; 85008; 85025

== ENCOUNTER 2023-06-12 08:24 | Outpatient (CLI) | payer BC | END 2023-06-12 23:59 | disposition home or self-care (01) | LOC: RAD 08:24 | PROVIDERS: ATTEND Family Medicine | DX: R05.9 Cough, unspecified (principal) | CPT/HCPCS: 71046 ==

== ENCOUNTER 2023-07-31 07:12 | Inpatient (IN) | payer BC, MEDICARE ==
[2023-07-22 16:27] LABS: BASOPHILS % (AUTO) 0.8 % (0-1); EOSINOPHILS # (AUTO) 0.1 X10'3 (0-0.9); LYMPHOCYTES # (AUTO) 1.3 X10'3 (1.1-4.8); MEAN CORPUSCULAR HEMOGLOBIN 31.1 PG (27.0-31.0); MONOCYTES # (AUTO) 0.4 X10'3 (0-0.9); PRE OP HEMATOCRIT 39.7 % (42.0-52.0); PRE OP WHITE BLOOD COUNT 5.1 10'3 (4.8-10.8)
[2023-07-22 16:39] LABS: EOSINOPHILS % (AUTO) 2.2 % (0-6); LYMPHOCYTES % (AUTO) 25.7 % (21-51); MEAN CORPUSCULAR HGB CONC 33.4 g/dL (33.0-36.5); MEAN CORPUSCULAR VOLUME 93.3 FL (78-98); MEAN PLATELET VOLUME 10.2 FL (7.4-10.4); MONOCYTES % (AUTO) 7.3 % (2-12); NEUTROPHILS # (AUTO) 3.3 X10'3 (1.8-7.7); PRE OP HEMOGLOBIN 13.3 g/dL (14.0-17.9); PRE OP PLATELET COUNT 223 X10'3 (140-440); RED BLOOD COUNT 4.26 X10'6 (4.70-6.10)
[2023-07-22 16:50] LABS: ALBUMIN 3.9 G/DL (3.4-5.0); ALBUMIN/GLOBULIN RATIO 1.1 (1.1-1.5); ALKALINE PHOSPHATASE 67 IU/L (46-116); BLOOD UREA NITROGEN 15 MG/DL (7-18); BUN/CREATININE RATIO 18.3 (10.0-20.0); CHLORIDE 104 MMOL/L (99-107); CREATININE 0.82 MG/DL (0.60-1.10); PRE OP ALT 35 U/L (30-65); PRE OP ANION GAP 8 (8-16); PRE OP AST 21 U/L (10-37); PRE OP BILIRUB, TOTAL 0.5 MG/DL (0.0-1.0); PRE OP GLUCOSE 105 MG/DL (70-104); PRE OP POTASSIUM 4.2 MMOL/L (3.4-5.1); PRE OP SODIUM 141 MMOL/L (135-145); TOTAL CARBON DIOXIDE 28.9 MMOL/L (24-32); TOTAL PROTEIN 7.6 G/DL (6.4-8.2); eGFR > 90 ML/MIN
[2023-07-22 17:05] LABS: THYROID STIMULATING HORMONE 0.01 ulU/ml (0.34-4.50)
[2023-07-31] VITALS (27 sets, daily range): BP systolic 90–127; BP diastolic 52–72; PULSE 59–72; RESP 12–20; TEMP 97.5–97.8; O2SAT 95–100
[~2023-07-31] VITALS: Ht 170.2 cm; Wt 84.1 kg
[2023-07-31] MEDS: hydrocortisone sod succ/PF 100mg/2ml inj. IV ONE (05:30)
[2023-07-31] MEDS: tranexamic acid inj. 1,000 MG in normal saline IV soln 100ML IV ONE (05:30)
[2023-07-31] MEDS: cefazolin 2gm/D5W 100mL 100 ML IV ONE (05:30)
[~2023-07-31 07:12] MED LIST changes: -ASPI-1071 PO
[2023-07-31] MEDS ORDERED: ondansetron/PF 4mg/2ml inj IV PRN ×2 (07:20→08:10)
[2023-07-31] MEDS ORDERED: bisacodyl 10mg suppository rectal RC PRN (07:20)
[2023-07-31] MEDS ORDERED: HYDROcodone/acetaminophen 10/325mg tab PO PRN ×2 (07:20)
[2023-07-31] MEDS ORDERED: magnesium hydroxide 30ml (MOM) UD suspension PO PRN (07:20)
[2023-07-31] MEDS ORDERED: HYDROmorphone 1 mg/ml syringe IV PRN (07:20)
[2023-07-31] MEDS ORDERED: diphenhydrAMINE 25mg capsule PO PRN ×2 (07:20)
[2023-07-31] MEDS ORDERED: naloxone 0.4 mg/ml inj IV PRN (07:20)
[2023-07-31] MEDS ORDERED: acetaminophen 325mg tablet PO PRN (07:20)
[2023-07-31] MEDS ORDERED: HYDROmorphone inj. 0.5 MG/0.5 ML DISP.SYRIN IV PRN (07:20)
[2023-07-31] MEDS: acetaminophen 325mg tablet PO ONE (07:54)
[2023-07-31] MEDS: famotidine 20mg tablet PO ONE (07:55)
[2023-07-31] MEDS: ringers solution, lacted 1,000 ML IV SCH ×2 (07:55→08:10)
[2023-07-31] MEDS: gabapentin 300mg capsule PO ONE (07:55)
[2023-07-31] MEDS: celeCOXIB 100mg capsule PO ONE (07:55)
[2023-07-31] MEDS: metoclopramide 5 mg/ml inj IV ONE (07:56)
[2023-07-31] MEDS: TESTOSTERONE PUMP TOP SCH (08:00)
[2023-07-31] MEDS: vancomycin 1,500 MG in NS 300ml IV soln IV ONE (08:01)
[2023-07-31] MEDS ORDERED: meperidine/PF 25mg/ml syringe IV PRN ×3 (08:10)
[2023-07-31] MEDS ORDERED: labetalol 20mg/4ml (5mg/ml) syringe IV PRN (08:10)
[2023-07-31] MEDS ORDERED: morphine 4 MG/ML inj SYRINge IV PRN (08:10)
[2023-07-31] MEDS ORDERED: enalaprilat dihydrate 2.5mg/2ml vial IV PRN (08:10)
[2023-07-31] MEDS ORDERED: proCHLORperazine 10 MG/2 ml inj IV PRN (08:10)
[2023-07-31] MEDS ORDERED: morphine 2 MG/ML inj. syringe IV PRN (08:10)
[2023-07-31] MEDS ORDERED: epiNEPHrine 1 mg/ml inj ONE (09:19)
[2023-07-31] MEDS ORDERED: cloNIDine hcl/PF 100mcg/ml inj ONE (09:20)
[2023-07-31] MEDS ORDERED: ROPIVAcaine 0.5% (5mg/ml) 30ml vial ONE ×2 (09:20→11:46)
[2023-07-31] MEDS ORDERED: ketorolac trometh. 30mg/ml inj. ONE (09:21)
[2023-07-31] MEDS ORDERED: vancomycin 1,000mg inj ONE (09:22)
[2023-07-31] MEDS: oxyCODONE SR 10mg (sust. release) tab -2 tabs (20mg) PO ONE (09:50)
[2023-07-31] MEDS ORDERED: BUPIVAcaine/dex-water/PF 7.5 mg/ml 2ml ampul ONE (10:00)
[2023-07-31] MEDS ORDERED: fentaNYL/PF 50MCG/1 ML 2ML syringe ONE (10:06)
[2023-07-31] MEDS ORDERED: MIDAZolam 1 MG/ML 5ML VIAL ONE (10:06)
[2023-07-31] MEDS: ROPIVAcaine 0.5% (5mg/ml) 30ml vial IJ ONE (10:35)
[2023-07-31] MEDS ORDERED: BUPIVAcaine/PF 7.5mg/ml (0.75%) 10ml vial ONE (11:46)
[2023-07-31] MEDS: hydrocortisone sod succ/PF 250mg/2ml inj. IV ONE (13:00)
[2023-07-31] MEDS: potassium cl 20mEq in 1/2 NS 1,000 ML IV SCH (15:20)
[2023-07-31] MEDS: tranexamic acid inj. 800 MG in normal saline 100ml IV soln 92 ML IV ONE (16:04)
[2023-07-31] MEDS: cefazolin 2gm/D5W 100mL 100 ML IV SCH (17:06)
[2023-07-31] MEDS: ascorbic acid 500mg tablet PO SCH (20:25)
[2023-07-31] MEDS: VANCOMYCIN 1,500MG inj. 1,500 MG in normal saline 500ml IV soln 300 ML IV ONE (20:25)
[2023-07-31] MEDS: gabapentin 300mg capsule PO SCH (20:25)
[2023-07-31] MEDS: sennosides 8.6mg tablet PO SCH (20:28)
[2023-08-01 06:27] VITALS: BP 122/70; PULSE 62; RESP 16; TEMP 98.2; O2SAT 99
[2023-08-01 06:31] LABS: BASOPHILS % (AUTO) 0.1 % (0-1); EOSINOPHILS % (AUTO) 0 % (0-6); HEMATOCRIT 33.2 % (42.0-52.0); HEMOGLOBIN 11.2 g/dl (14.0-17.9); LYMPHOCYTES # (AUTO) 0.7 X10'3 (1.1-4.8); LYMPHOCYTES % (AUTO) 5.2 % (21-51); MEAN CORPUSCULAR HEMOGLOBIN 31.5 PG (27.0-31.0); MEAN CORPUSCULAR HGB CONC 33.6 g/dL (33.0-36.5); MEAN CORPUSCULAR VOLUME 93.8 FL (78-98); MEAN PLATELET VOLUME 10.6 FL (7.4-10.4); MONOCYTES # (AUTO) 0.9 X10'3 (0-0.9); MONOCYTES % (AUTO) 6.8 % (2-12); NEUTROPHILS # (AUTO) 11.4 X10'3 (1.8-7.7); NEUTROPHILS % (AUTO) 87.9 % (42-75); PLATELET COUNT 175 X10'3 (140-440); RED BLOOD COUNT 3.54 X10'6 (4.70-6.10); RED CELL DISTRIBUTION WIDTH 13.9 % (11.5-14.5)
[2023-08-01 06:46] LABS: ANION GAP 3 (8-16); CHLORIDE 107 MMOL/L (99-107); POTASSIUM 4.3 MMOL/L (3.5-5.1); SODIUM 137 MMOL/L (135-145); TOTAL CARBON DIOXIDE 27.3 MMOL/L (24-32)
[2023-08-01] MEDS: aspirin 325mg tablet PO SCH (07:34)
[2023-08-01] MEDS: atorvastatin 20mg tablet PO SCH (07:35)
[2023-08-01] MEDS: multivitamins, therapeutics tablet PO SCH (07:35)
[2023-08-01] MEDS: levoTHYROXINE 100mcg tablet PO SCH (07:35)
[2023-08-01 07:49] VITALS: RESP 16; O2SAT 99
[2023-08-01 08:06] LABS: PLATELET ESTIMATE NORMAL; TOTAL CELLS COUNTED 100
[2023-08-01 08:08] LABS: LARGE PLATELETS FEW
[2023-08-01] MEDS: hydrocortisone 10mg tablet PO SCH (09:11)
[2023-08-01] MEDS ORDERED: celeCOXIB 100mg capsule PO SCH (20:00)
== END 2023-08-01 13:00 | disposition home or self-care (01) | DRG 470 ==
LOC: PAS 07:12 → SUR 3N 07:23
PROVIDERS: ADMIT Orthopaedic Surgery; ATTEND Orthopaedic Surgery
PROC: 3E0T3BZ Introduction of Anesthetic Agent into Peripheral Nerves and Plexi, Percutaneous Approach (ICD-10-PCS; 2023-07-31)
PROC: 3E0T33Z Introduction of Anti-inflammatory into Peripheral Nerves and Plexi, Percutaneous Approach (ICD-10-PCS; 2023-07-31)
PROC: 0SRC0J9 Replacement of Right Knee Joint with Synthetic Substitute, Cemented, Open Approach (ICD-10-PCS; principal; 2023-07-31 10:00)
DX: M17.11 Unilateral primary osteoarthritis, right knee (principal)
CPT/HCPCS: Z7506; Z7508; 36415; 73560; 80051; 80053; 82948; 84443; 85007; 85025; 86885; 86900; 86901; 87081; 97110; 97116; 97161; 97530; A4215; A6449; A7000; C1713; C1776; G0378; J0171; J0690; J0735; J1885; J2250; J2765; J2795; J3010; J3370; J3480; J3490; J7040; J7120

== ENCOUNTER 2024-07-16 14:46 | Outpatient (CLI) | payer BC, MEDICARE ==
[~2024-07-16 14:46] MED LIST changes: -ROSU20TA73 PO; +ROSU20TA98 PO
== END 2024-07-16 23:59 | disposition home or self-care (01) ==
LOC: RAD 14:46
DX: R05.9 Cough, unspecified (principal); R50.9 Fever, unspecified
CPT/HCPCS: 71046